=== PATIENT | female | born 1960 | race African-American/Black ===

== ENCOUNTER 2017-09-18 15:43 | Emergency (ER) | payer OTHER ==
[~2017-09-18] VITALS: Ht 170.2 cm; Wt 92.1 kg
[2017-09-18] MEDS ORDERED: NORFLEX100 MG PO (16:37)
[2017-09-18] MEDS ORDERED: NAPROSYN500 MG PO (16:37)
== END 2017-09-18 17:11 | disposition home or self-care (01) ==
LOC: ER 15:43
DX: S39.012A Strain of muscle, fascia and tendon of lower back, initial encounter (principal); W01.0XXA Fall on same level from slipping, tripping and stumbling without subsequent striking against object, initial encounter; Y93.89 Activity, other specified; Y92.89 Other specified places as the place of occurrence of the external cause; Y99.8 Other external cause status

== ENCOUNTER 2020-03-08 20:54 | Emergency (ER) | payer OTHER ==
[~2020-03-08] VITALS: Ht 170.2 cm; Wt 90.3 kg
[~2020-03-08 20:54] MED LIST: NAPROSYN500 MG PO; NORFLEX100 MG PO
[2020-03-08] MEDS ORDERED: CARVEDILOL12.5 MG PO (21:49)
[2020-03-08] MEDS ORDERED: LISINOPRIL2.5 MG PO (21:49)
[2020-03-08 22:07] VITALS: BP 164/91
== END 2020-03-08 22:08 | disposition home or self-care (01) ==
LOC: ER 20:54
DX: B30.9 Viral conjunctivitis, unspecified (principal); I10 Essential (primary) hypertension; Z79.899 Other long term (current) drug therapy